=== PATIENT | male | born 1995 | race Caucasian/White ===

== ENCOUNTER 2016-09-11 17:01 | Emergency (ER) | payer BC, OTHER ==
[2016-09-11 18:04] VITALS: BP 96/53
[2016-09-11] MEDS ORDERED: Albuterol 2.5 MG/3 ML NEB.SOL* (0.083%) INH ONE (18:13)
--- NOTE | 2016-09-11 18:34 | UC ---
Asthma HPI - HPI Summary HPI Summary: Patient has hisotry of asthma has run out of his medications and not taken them in a while. He feels his chest is thight and not able to take a deep breath. o2 sat is 93 % - History of Current Complaint Chief Complaint: UCGeneralIllness Stated Complaint: COUGH,CONGESTION Time Seen by Provider: 09/11/16 18:11 Hx Obtained From: Patient Onset/Duration: Sudden Onset, Lasting Days Timing: Constant Initial Severity: Mild Current Severity: Moderate Location/Character: Cough (Nonproductive) Aggravating: Exertion, Weather Change Alleviating: Nothing - Risk Factors Status Asthmaticus Risk Factors: Negative - Allergy/Home Medications Allergies/Adverse Reactions: Allergies Allergy/AdvReac Type Severity Reaction Status Date / Time No Known Allergies Allergy Verified 09/11/16 17:58 Home Medications: Home Medications Acetaminophen TAB* [Tylenol TAB*] 650 mg PO ONCE 09/11/16 [History Confirmed 02/19] PMH/Surg Hx/FS Hx/Imm Hx Previously Healthy: Yes Respiratory History Of: Reports: Asthma - Surgical History Surgical History: None - Social History Alcohol Use: Occasionally Alcohol Amount: 1-2 times a week Substance Use Type: None Smoking Status (MU): Never Smoked Tobacco - Immunization History Most Recent Influenza Vaccination: none Review of Systems Constitutional: Negative Skin: Negative Eyes: Negative ENT: Negative Respiratory: Shortness Of Breath, Cough Cardiovascular: Negative Gastrointestinal: Negative Genitourinary: Negative Motor: Negative Neurovascular: Negative Musculoskeletal: Negative Neurological: Negative Psychological: Negative All Other Systems Reviewed And Are Negative: Yes Physical Exam Triage Information Reviewed: Yes Appearance: Well-Appearing, Well-Nourished, Pain Distress Vital Signs: Initial Vital Signs Temp 100.7 F 09/11/16 17:58 Pulse 106 09/11/16 17:58 Resp 20 09/11/16 17:58 BP 96/53 09/11/16 17:58 Pulse Ox 93 09/11/16 17:58 Vital Signs Reviewed: Yes Eye Exam: Normal Eyes: Positive: Conjunctiva Clear ENT Exam: Normal ENT: Positive: Normal ENT inspection, Hearing grossly normal, Pharynx normal, TMs normal Dental Exam: Normal Neck exam: Normal Neck: Positive: Supple, Nontender, No Lymphadenopathy Respiratory: Positive: Chest non-tender, No respiratory distress, No accessory muscle use, Decreased breath sounds, Rhonchi, Wheezing, Inspiration Cardiovascular Exam: Normal Cardiovascular: Positive: No Murmur, Pulses Normal, Tachycardia Abdominal Exam: Normal Abdomen Description: Positive: Nontender, No Organomegaly, Soft Bowel Sounds: Positive: Present Musculoskeletal Exam: Normal Musculoskeletal: Positive: Strength Intact, ROM Intact, No Edema Neurological Exam: Normal Neurological: Positive: Alert, Muscle Tone Normal Psychological Exam: Normal Skin Exam: Normal Asthma Course/Dx - Course Course Of Treatment: hx obtained, exam performed, meds reviewed, albuterol neb given with excellent results.. flu swab was negative. treated for asthma and seasonal allergies. patient has low grade fever, he denies any URI type symptoms. patient does take a daily zyrtec. - Differential Dx/Diagnosis Differential Diagnosis/HQI/PQRI: Acute Asthma, Pneumonia, Reactive Airway Disease Provider Diagnoses: asthma exacerbation. viral syndrome Discharge - Discharge Plan Condition: Stable Disposition: HOME Prescriptions: Montelukast Sodium TAB* [Singulair TAB*] 10 mg PO DAILY #30 tab Patient Education Materials: Asthma (ED) Additional Instructions: take the medications as prescribed. Increase fluid intake and get plenty of rest. Start taking your daily zyrtec due to the warming weather and exacerbation of symtpoms.
[2016-09-11] MEDS ORDERED: Albuterol HFA INHALER* 8 gm MDI INH ONE (18:53)
== END 2016-09-11 19:26 | disposition home or self-care (01) ==
LOC: UCCORT 17:01
DX: J45.901 Unspecified asthma with (acute) exacerbation (principal); B34.9 Viral infection, unspecified; Z76.0 Encounter for issue of repeat prescription
CPT/HCPCS: 87502; 99203; A9270-GY; G0463